=== PATIENT | male | born 1960 | race African-American/Black ===

== ENCOUNTER 2021-03-17 09:19 | Emergency (ER) | payer OTHER, SELFPAY ==
[2021-03-17] MEDS ORDERED: Diazepam 10 MG/2 ML SYRINGE ONE (09:37)
[2021-03-17] MEDS ORDERED: Ketorolac Tromethamine 30 MG/ML VIAL ONE (10:32)
[2021-03-17] MEDS ORDERED: Morphine 4 MG/ML VIAL ONE (11:11)
== END 2021-03-17 11:16 | disposition home or self-care (01) ==
LOC: CSHERS 09:19
DX: S32.019A Unspecified fracture of first lumbar vertebra, initial encounter for closed fracture (principal); W01.10XA Fall on same level from slipping, tripping and stumbling with subsequent striking against unspecified object, initial encounter; I25.2 Old myocardial infarction; E11.9 Type 2 diabetes mellitus without complications; I10 Essential (primary) hypertension
CPT/HCPCS: 70450; 72125; 72128; 72131; 96374; 96375; J1885; J2270; J3360

== ENCOUNTER 2021-03-22 10:46 | Inpatient (IN) | payer SELFPAY ==
[2021-03-22] MEDS ORDERED: Aspirin Chewable 81 MG TAB ONE (11:32)
[2021-03-22] MEDS ORDERED: Ondansetron PF 4 MG/2 ML Vial ONE (11:33)
[2021-03-22] MEDS ORDERED: Morphine 4 MG/ML VIAL ONE (11:33)
[2021-03-22 11:52] LABS: #Eosinphils 0.2 10x3/uL (0.0-0.5); #Monocytes 0.5 10x3/uL (0.0-1.1); #Neutrophils 4.7 10x3/uL (1.5-8.4); %Basophils 0.4 % (0.0-2.0); %Eosinophils 3.3 % (0.0-6.0); %Lymphocytes 23.7 % (18.0-47.0); %Monocytes 7.5 % (0.0-10.0); %Neutrophils 64.8 % (40.0-75.0); Hemoglobin 14.3 g/dL (13.5-17.5); Mean Corpuscular HGB CONC 32.6 g/dL (32.0-36.0); Mean Corpuscular Hemoglobin 24.6 pg (27.0-33.0); Mean Corpuscular Volume 75.3 fl (81.2-95.1); Platelet Count 170 10x3/uL (150-450); RBC Distribution Width 13.3 % (11.5-14.5); Red Blood Cell (RBC) Count 5.82 10x6/uL (4.32-5.72); White Blood Cell (WBC) Count 7.2 10x3/uL (3.5-10.5)
[2021-03-22 12:03] LABS: ALT (SGPT) 36 U/L (8-55); AST (SGOT) 28 U/L (5-34); Albumin 4.2 g/dL (3.4-4.8); Alkaline Phosphatase 68 U/L (40-110); Anion Gap 17 mmol/L (10-20); BUN (Urea Nitrogen) 23 mg/dL (8.4-25.7); Bilirubin, Total 0.5 mg/dL (0.2-1.2); CK (CPK) 88 U/L (30-200); Calc. Creatinine Clearance 0 mL/min (70-130); Calcium 10.4 mg/dL (7.8-10.44); Carbon Dioxide 21 mmol/L (23-31); Chloride 104 mmol/L (98-107); Globulin 3.8 g/dL (2.4-3.5); Glucose 249 mg/dL (80-115); Potassium 5.5 mmol/L (3.5-5.1); Sodium 136 mmol/L (136-145)
[2021-03-22] MEDS ORDERED: Nitroglycerin 2% Ointment 1 INCH/1 GM Packet ONE (12:09)
[2021-03-22] MEDS ORDERED: Dextrose 50% Abboject 50 ML SYRINGE SLOW IVP PRN (14:31)
[2021-03-22] MEDS ORDERED: Ondansetron PF 4 MG/2 ML Vial IVP PRN (14:31)
[2021-03-22] MEDS ORDERED: HYDROcodone/Acetaminophen 10/325 mg Tablet PO PRN (14:31)
[2021-03-22] MEDS ORDERED: Dextrose 5% in Water 1,000 ML IV PRN (14:31)
[2021-03-22] MEDS ORDERED: Methocarbamol 500 MG TAB PO PRN (14:35)
[2021-03-22] MEDS ORDERED: Polyethylene Glycol 3350 17 GM Packet PO PRN (14:37)
[2021-03-22] MEDS ORDERED: Docusate 100 MG CAP PO PRN (14:37)
[2021-03-22] MEDS: Sodium Chloride 0.9% 1,000 ML IV SCH (16:21)
[2021-03-22 16:28] VITALS: BMI 31.2
[2021-03-22 16:34] LABS: Troponin I 0.023 ng/mL (< 0.028)
[2021-03-22] MEDS: HumaLOG 300 UNITS/3 ML VIAL SC PRN (17:14)
[2021-03-22 19:01] LABS: Troponin I 0.021 ng/mL (< 0.028)
[2021-03-22] MEDS: Acetaminophen 325 MG TAB PO PRN (21:43)
[2021-03-22] MEDS: Gabapentin 100 MG CAP PO SCH (21:44)
[2021-03-22] MEDS: Carvedilol 6.25 MG TAB PO SCH (21:46)
[2021-03-22] MEDS: Atorvastatin Calcium 40 MG TAB PO SCH (21:47)
[2021-03-23] MEDS ORDERED: HYDROcodone/Acetaminophen 10/325 mg Tablet PO PRN (00:41)
[2021-03-23] MEDS: Sodium Chloride 0.9% 1,000 ML IV SCH ×2 (05:03→22:27)
[2021-03-23 05:23] LABS: Anion Gap 13 mmol/L (10-20); BUN (Urea Nitrogen) 25 mg/dL (8.4-25.7); Calc. Creatinine Clearance 88 mL/min (70-130); Calcium 9.4 mg/dL (7.8-10.44); Carbon Dioxide 21 mmol/L (23-31); Chloride 105 mmol/L (98-107); Glucose 193 mg/dL (80-115); Potassium 5.2 mmol/L (3.5-5.1); Sodium 134 mmol/L (136-145)
[2021-03-23 05:55] LABS: #Eosinphils 0.2 10x3/uL (0.0-0.5); #Monocytes 0.4 10x3/uL (0.0-1.1); #Neutrophils 3.2 10x3/uL (1.5-8.4); %Basophils 0.4 % (0.0-2.0); %Eosinophils 3.2 % (0.0-6.0); %Lymphocytes 28.6 % (18.0-47.0); %Monocytes 7.8 % (0.0-10.0); %Neutrophils 59.8 % (40.0-75.0); Hemoglobin 13.3 g/dL (13.5-17.5); Mean Corpuscular HGB CONC 33.2 g/dL (32.0-36.0); Mean Corpuscular Volume 75.4 fl (81.2-95.1); Mean Platelet Volume 11.2 fl (7.4-10.4); Platelet Count 128 10x3/uL (150-450); RBC Distribution Width 13.6 % (11.5-14.5); Red Blood Cell (RBC) Count 5.32 10x6/uL (4.32-5.72); White Blood Cell (WBC) Count 5.3 10x3/uL (3.5-10.5)
[2021-03-23] MEDS: HumaLOG 300 UNITS/3 ML VIAL SC PRN ×3 (07:38→21:54)
[2021-03-23] MEDS ORDERED: Methocarbamol 500 MG TAB PO PRN (08:53)
[2021-03-23] MEDS ORDERED: Enoxaparin Sodium 30 MG/0.3 ML SYRINGE SC SCH (09:00)
[2021-03-23] MEDS: Lisinopril 10 MG TAB PO SCH (09:05)
[2021-03-23] MEDS: Amlodipine 5 MG TAB PO SCH (09:06)
[2021-03-23] MEDS: Carvedilol 6.25 MG TAB PO SCH ×2 (09:06→22:02)
[2021-03-23] MEDS: Aspirin 81 mg Enteric Coated Tablet PO SCH (09:06)
[2021-03-23] MEDS: Gabapentin 100 MG CAP PO SCH ×2 (09:07→22:01)
[2021-03-23] MEDS: Furosemide 40 MG TAB PO SCH (09:07)
[2021-03-23] MEDS ORDERED: Methocarbamol 500 MG TAB PO SCH (09:30)
[2021-03-23 12:05] LABS: Hemoglobin A1c 9.8 % (4.0-6.0)
[2021-03-23] MEDS: HYDROcodone/Acetaminophen 10/325 mg Tablet PO PRN ×2 (15:30→21:57)
[2021-03-23] MEDS: Atorvastatin Calcium 40 MG TAB PO SCH (22:02)
[2021-03-24 04:55] LABS: Anion Gap 13 mmol/L (10-20); BUN (Urea Nitrogen) 22 mg/dL (8.4-25.7); Calc. Creatinine Clearance 98 mL/min (70-130); Calcium 9.5 mg/dL (7.8-10.44); Carbon Dioxide 24 mmol/L (23-31); Chloride 103 mmol/L (98-107); Glucose 164 mg/dL (80-115); Potassium 5.2 mmol/L (3.5-5.1); Sodium 135 mmol/L (136-145)
[2021-03-24] MEDS: Acetaminophen 325 MG TAB PO PRN (05:44)
[2021-03-24] MEDS: Sodium Chloride 0.9% 1,000 ML IV SCH (05:45)
[2021-03-24] MEDS: HumaLOG 300 UNITS/3 ML VIAL SC PRN (05:57)
[2021-03-24] MEDS ORDERED: Enoxaparin Sodium 40 MG/0.4 ML SYRINGE SC SCH (09:00)
[2021-03-24] MEDS: Carvedilol 6.25 MG TAB PO SCH (10:19)
[2021-03-24] MEDS: Amlodipine 5 MG TAB PO SCH (10:19)
[2021-03-24] MEDS: Lisinopril 10 MG TAB PO SCH (10:20)
[2021-03-24] MEDS: Aspirin 81 mg Enteric Coated Tablet PO SCH (10:20)
[2021-03-24] MEDS: Gabapentin 100 MG CAP PO SCH (10:20)
[2021-03-24] MEDS: Furosemide 40 MG TAB PO SCH (10:20)
[2021-03-24 12:24] VITALS: BP 132/84; TEMP 98
== END 2021-03-24 12:40 | disposition home or self-care (01) | DRG 552 ==
LOC: CSHERS 10:46 → CSHTELE 14:49
PROVIDERS: ADMIT Internal Medicine; ATTEND Internal Medicine
DX: S32.010A Wedge compression fracture of first lumbar vertebra, initial encounter for closed fracture (principal); N17.9 Acute kidney failure, unspecified; I50.30 Unspecified diastolic (congestive) heart failure; M54.9 Dorsalgia, unspecified; I11.0 Hypertensive heart disease with heart failure; W19.XXXA Unspecified fall, initial encounter; G62.9 Polyneuropathy, unspecified; E87.5 Hyperkalemia; Z90.49 Acquired absence of other specified parts of digestive tract; Y92.9 Unspecified place or not applicable; Z79.899 Other long term (current) drug therapy; I25.2 Old myocardial infarction
CPT/HCPCS: 36415; 36416; 71045; 71275; 80048; 80053; 82550; 83036; 83880; 84484; 85025; 85379; 93005; 93306; 94760; 96374; 96375; J1650; J1815; J2270; J2405; J7050

== ENCOUNTER 2021-08-30 08:37 | Emergency (ER) | payer OTHER, SELFPAY | END 2021-08-30 10:45 | disposition home or self-care (01) | LOC: CSHERS 08:37 | DX: J02.9 Acute pharyngitis, unspecified (principal); Z20.822 Contact with and (suspected) exposure to COVID-19; I11.0 Hypertensive heart disease with heart failure; I50.9 Heart failure, unspecified; E11.9 Type 2 diabetes mellitus without complications; I25.2 Old myocardial infarction; I25.10 Atherosclerotic heart disease of native coronary artery without angina pectoris | CPT/HCPCS: 87081; 87430; 99283; U0003; U0005 ==

== ENCOUNTER 2021-09-06 13:31 | Inpatient (IN) | payer MEDICAID, SELFPAY ==
[2021-09-06] MEDS ORDERED: Nitroglycerin 2% Ointment 1 INCH/1 GM Packet ONE (13:59)
[2021-09-06] MEDS ORDERED: Aspirin 325 MG TAB ONE (13:59)
[2021-09-06 14:23] LABS: #Eosinphils 0.2 10x3/uL (0.0-0.5); #Monocytes 0.6 10x3/uL (0.0-1.1); #Neutrophils 4.8 10x3/uL (1.5-8.4); %Basophils 0.5 % (0.0-2.0); %Eosinophils 2.6 % (0.0-6.0); %Lymphocytes 23.1 % (18.0-47.0); %Neutrophils 65.5 % (40.0-75.0); Hemoglobin 14.2 g/dL (13.5-17.5); Mean Corpuscular HGB CONC 33.2 g/dL (32.0-36.0); Mean Corpuscular Hemoglobin 24.9 pg (27.0-33.0); Mean Platelet Volume 11.2 fl (7.4-10.4); Platelet Count 218 10x3/uL (150-450); RBC Distribution Width 12.9 % (11.5-14.5); Red Blood Cell (RBC) Count 5.71 10x6/uL (4.32-5.72); White Blood Cell (WBC) Count 7.4 10x3/uL (3.5-10.5)
[2021-09-06 14:39] LABS: ALT (SGPT) 32 U/L (8-55); AST (SGOT) 26 U/L (5-34); Albumin 4.1 g/dL (3.4-4.8); Alkaline Phosphatase 66 U/L (40-110); Anion Gap 16 mmol/L (10-20); BUN (Urea Nitrogen) 20 mg/dL (8.4-25.7); Bilirubin, Total 0.7 mg/dL (0.2-1.2); CK (CPK) 141 U/L (30-200); Calc. Creatinine Clearance 0 mL/min (70-130); Calcium 10.4 mg/dL (7.8-10.44); Carbon Dioxide 23 mmol/L (23-31); Chloride 104 mmol/L (98-107); Estimated GFR 62; Globulin 3.2 g/dL (2.4-3.5); Glucose 189 mg/dL (80-115); Lipase 66 U/L (8-78); Potassium 4.2 mmol/L (3.5-5.1); Protein, Total 7.3 g/dL (5.8-8.1); Sodium 139 mmol/L (136-145)
[2021-09-06 14:58] LABS: CKMB 2.4 ng/mL (0-6.6)
[2021-09-06] MEDS ORDERED: Dextrose 50% Abboject 50 ML SYRINGE SLOW IVP PRN (15:46)
[2021-09-06] MEDS ORDERED: HumaLOG 300 UNITS/3 ML VIAL SC PRN (15:46)
[2021-09-06] MEDS ORDERED: Ondansetron ODT 4 MG TAB PO PRN (15:46)
[2021-09-06] MEDS ORDERED: Dextrose 5% in Water 1,000 ML IV PRN (15:46)
[2021-09-06] MEDS: Acetaminophen 325 MG TAB PO PRN (17:32)
[2021-09-06 17:50] VITALS: BMI 30.1
[2021-09-06 18:10] LABS: Troponin I 0.029 ng/mL (< 0.028)
[2021-09-06 21:10] LABS: Troponin I 0.029 ng/mL (< 0.028)
[2021-09-06] MEDS: Atorvastatin Calcium 40 MG TAB PO SCH (21:38)
[2021-09-06] MEDS: HumaLOG 300 UNITS/3 ML VIAL SC PRN (21:39)
[2021-09-07 05:20] LABS: #Eosinphils 0.2 10x3/uL (0.0-0.5); #Monocytes 0.5 10x3/uL (0.0-1.1); #Neutrophils 3.2 10x3/uL (1.5-8.4); %Basophils 0.5 % (0.0-2.0); %Eosinophils 2.9 % (0.0-6.0); %Lymphocytes 29.3 % (18.0-47.0); %Monocytes 9.2 % (0.0-10.0); %Neutrophils 57.7 % (40.0-75.0); Hemoglobin 13.4 g/dL (13.5-17.5); Mean Corpuscular HGB CONC 33.2 g/dL (32.0-36.0); Mean Corpuscular Volume 75.2 fl (81.2-95.1); Mean Platelet Volume 11.1 fl (7.4-10.4); Platelet Count 157 10x3/uL (150-450); RBC Distribution Width 12.9 % (11.5-14.5); Red Blood Cell (RBC) Count 5.37 10x6/uL (4.32-5.72); White Blood Cell (WBC) Count 5.6 10x3/uL (3.5-10.5)
[2021-09-07 05:30] LABS: Anion Gap 11 mmol/L (10-20); BUN (Urea Nitrogen) 22 mg/dL (8.4-25.7); Calc. Creatinine Clearance 99 mL/min (70-130); Calcium 9.7 mg/dL (7.8-10.44); Carbon Dioxide 24 mmol/L (23-31); Chloride 107 mmol/L (98-107); Estimated GFR 76; Glucose 184 mg/dL (80-115); Potassium 3.8 mmol/L (3.5-5.1); Sodium 138 mmol/L (136-145)
[2021-09-07] MEDS: HumaLOG 300 UNITS/3 ML VIAL SC PRN ×2 (06:40→18:56)
[2021-09-07] MEDS ORDERED: HYDROcodone/Acetaminophen 10/325 mg Tablet PO PRN (07:59)
[2021-09-07] MEDS ORDERED: Lisinopril 10 MG TAB PO SCH (09:00)
[2021-09-07] MEDS ORDERED: Aspirin 81 mg Enteric Coated Tablet PO SCH (09:00)
[2021-09-07] MEDS: Aspirin Chewable 81 MG TAB PO SCH (09:32)
[2021-09-07] MEDS: Furosemide 40 MG TAB PO SCH (09:32)
[2021-09-07] MEDS: Amlodipine 5 MG TAB PO SCH (09:33)
[2021-09-07] MEDS: Empagliflozin 25 MG TAB PO SCH (09:33)
[2021-09-07] MEDS: Carvedilol 6.25 MG TAB PO SCH ×2 (09:33→20:47)
[2021-09-07] MEDS: Acetaminophen 325 MG TAB PO PRN (09:42)
[2021-09-07] MEDS: Atorvastatin Calcium 40 MG TAB PO SCH (20:47)
[2021-09-07] MEDS: Lisinopril 10 MG TAB PO SCH (20:47)
[2021-09-07] MEDS ORDERED: AMOXICILLIN 875 MG PO SCH (21:00)
[2021-09-08] MEDS: HumaLOG 300 UNITS/3 ML VIAL SC PRN ×3 (06:30→17:20)
[2021-09-08] MEDS: Acetaminophen 325 MG TAB PO PRN (08:30)
[2021-09-08] MEDS: Carvedilol 6.25 MG TAB PO SCH ×2 (08:30→21:06)
[2021-09-08] MEDS: Aspirin Chewable 81 MG TAB PO SCH (08:30)
[2021-09-08] MEDS: Lisinopril 10 MG TAB PO SCH ×2 (08:30→21:07)
[2021-09-08] MEDS: Furosemide 40 MG TAB PO SCH (08:30)
[2021-09-08] MEDS: Amlodipine 5 MG TAB PO SCH (08:30)
[2021-09-08] MEDS: Empagliflozin 25 MG TAB PO SCH (08:35)
[2021-09-08] MEDS: Amiodarone 200 MG TAB PO SCH ×2 (15:11→21:07)
[2021-09-08] MEDS: Atorvastatin Calcium 40 MG TAB PO SCH (21:06)
[2021-09-09 05:18] LABS: Cardiac Risk 4.6 (Less than 4.5)
[2021-09-09] MEDS: HumaLOG 300 UNITS/3 ML VIAL SC PRN ×2 (06:00→12:06)
[2021-09-09] MEDS: Amiodarone 200 MG TAB PO SCH (08:21)
[2021-09-09] MEDS: Furosemide 40 MG TAB PO SCH (08:21)
[2021-09-09] MEDS: Lisinopril 10 MG TAB PO SCH (08:21)
[2021-09-09] MEDS: Empagliflozin 25 MG TAB PO SCH (08:21)
[2021-09-09] MEDS: Aspirin Chewable 81 MG TAB PO SCH (08:22)
[2021-09-09] MEDS: Carvedilol 6.25 MG TAB PO SCH (08:22)
[2021-09-09] MEDS: Amlodipine 5 MG TAB PO SCH (08:22)
[2021-09-09 12:35] VITALS: BP 147/85; TEMP 97.9
== END 2021-09-09 13:15 | disposition home or self-care (01) | DRG 309 ==
LOC: CSHERS 13:31 → CSHTELE 16:28
PROVIDERS: ADMIT Internal Medicine; ATTEND Internal Medicine
DX: I47.1 Supraventricular tachycardia (principal); I50.42 Chronic combined systolic (congestive) and diastolic (congestive) heart failure; I42.8 Other cardiomyopathies; I25.10 Atherosclerotic heart disease of native coronary artery without angina pectoris; I11.0 Hypertensive heart disease with heart failure; E11.9 Type 2 diabetes mellitus without complications; J45.909 Unspecified asthma, uncomplicated; J02.9 Acute pharyngitis, unspecified; I48.92 Unspecified atrial flutter; Z20.822 Contact with and (suspected) exposure to COVID-19; Z79.899 Other long term (current) drug therapy; Z79.84 Long term (current) use of oral hypoglycemic drugs; Z79.82 Long term (current) use of aspirin; Z90.49 Acquired absence of other specified parts of digestive tract; I25.2 Old myocardial infarction
CPT/HCPCS: 36415; 36416; 71045; 80048; 80053; 80061; 82550; 82553; 83036; 83690; 83735; 83880; 84443; 84484; 85025; 85379; 93005; 93010; 93306; 94760; J1815; U0003; U0005

== ENCOUNTER 2021-09-18 06:37 | Emergency (ER) | payer SELFPAY ==
[2021-09-18] MEDS ORDERED: Ketorolac Tromethamine 30 MG/ML VIAL ONE (07:20)
== END 2021-09-18 08:55 | disposition home or self-care (01) ==
LOC: CSHERS 06:37
DX: S83.92XA Sprain of unspecified site of left knee, initial encounter (principal); I25.10 Atherosclerotic heart disease of native coronary artery without angina pectoris; I25.2 Old myocardial infarction; E11.9 Type 2 diabetes mellitus without complications; I11.0 Hypertensive heart disease with heart failure; I50.9 Heart failure, unspecified
CPT/HCPCS: 96372; J1885

== ENCOUNTER 2022-04-13 10:13 | Inpatient (IN) | payer SELFPAY ==
[2022-04-13 10:59] LABS: #Eosinphils 0.1 10x3/uL (0.0-0.5); #Monocytes 0.4 10x3/uL (0.0-1.1); #Neutrophils 4.1 10x3/uL (1.5-8.4); %Basophils 0.5 % (0.0-2.0); %Lymphocytes 22.4 % (18.0-47.0); %Monocytes 6.5 % (0.0-10.0); %Neutrophils 68.4 % (40.0-75.0); Hemoglobin 13.6 g/dL (13.5-17.5); Mean Corpuscular Hemoglobin 25.2 pg (27.0-33.0); Mean Corpuscular Volume 76.4 fl (81.2-95.1); Platelet Count 221 10x3/uL (150-450); RBC Distribution Width 13.7 % (11.5-14.5); Red Blood Cell (RBC) Count 5.39 10x6/uL (4.32-5.72)
[2022-04-13 11:03] LABS: ALT (SGPT) 50 U/L (8-55); AST (SGOT) 37 U/L (5-34); Albumin 4.2 g/dL (3.4-4.8); Alkaline Phosphatase 49 U/L (40-110); Anion Gap 17 mmol/L (10-20); BUN (Urea Nitrogen) 23 mg/dL (8.4-25.7); Bilirubin, Total 0.7 mg/dL (0.2-1.2); Calc. Creatinine Clearance 0 mL/min (70-130); Calcium 10.2 mg/dL (7.8-10.44); Carbon Dioxide 19 mmol/L (23-31); Chloride 103 mmol/L (98-107); Estimated GFR 47; Globulin 3.1 g/dL (2.4-3.5); Glucose 178 mg/dL (80-115); Lipase 38 U/L (8-78); Potassium 4.6 mmol/L (3.5-5.1); Protein, Total 7.3 g/dL (5.8-8.1); Sodium 134 mmol/L (136-145)
[2022-04-13] MEDS ORDERED: Morphine 4 MG/ML VIAL ONE ×2 (11:49→14:10)
[2022-04-13] MEDS ORDERED: Aspirin Chewable 81 MG TAB ONE (12:03)
[2022-04-13 15:24] LABS: Troponin I 0.024 ng/mL (< 0.028)
[2022-04-13] MEDS ORDERED: Dextrose 5% in Water 1,000 ML IV PRN (16:47)
[2022-04-13] MEDS ORDERED: Dextrose 50% Abboject 50 ML SYRINGE SLOW IVP PRN (16:47)
[2022-04-13] MEDS ORDERED: HumaLOG 300 UNITS/3 ML VIAL SC PRN ×2 (16:47)
[2022-04-13] MEDS ORDERED: Ipratropium/Albuterol 3 ML NEB NEB PRN (18:22)
[2022-04-13 18:48] LABS: Troponin I 0.022 ng/mL (< 0.028)
[2022-04-13 18:51] LABS: Magnesium 1.9 mg/dL (1.6-2.6)
[2022-04-13] MEDS ORDERED: Furosemide 40 MG/4 ML VIAL SLOW IVP SCH (20:00)
[2022-04-13] MEDS: Amiodarone 200 MG TAB PO SCH (21:33)
[2022-04-13] MEDS: Atorvastatin Calcium 40 MG TAB PO SCH (21:33)
[2022-04-13] MEDS: Carvedilol 6.25 MG TAB PO SCH (21:33)
[2022-04-13] MEDS: Heparin 5,000 UNITS/ML VIAL SC SCH (21:34)
[2022-04-13 22:16] VITALS: BMI 29.5
[2022-04-13 22:43] LABS: Bilirubin Neg (Negative); Blood, Urine Negative (Negative); Clarity Clear (Clear); Glucose, Urine (Dipstick) >=1000 mg/dL (Negative); Ketone, Urine Negative (Negative); Leukocyte Negative (Negative); Nitrite Negative (Negative); Protein, Urine (Dipstick) Negative (Neg-Trace); Specific Gravity, Urine 1.015 (1.005-1.030); Urobilinogen Normal mg/dL (Less than 2)
[2022-04-13 23:11] LABS: Bacteria/HPF None Seen HPF (None Seen); RBC/HPF 0-3 HPF (0-3); Squamous Epithelial 0-3 HPF (0-3); WBC/HPF 0-3 HPF (0-3)
[2022-04-13 23:23] LABS: SARS-CoV-2 NAA Rapid Test Not Detected (NotDetected)
[2022-04-14] MEDS: Furosemide 40 MG/4 ML VIAL SLOW IVP SCH ×2 (05:37→15:22)
[2022-04-14] MEDS ORDERED: Lisinopril 10 MG TAB PO SCH (09:00)
[2022-04-14] MEDS ORDERED: Amlodipine 5 MG TAB PO SCH (09:00)
[2022-04-14] MEDS: Heparin 5,000 UNITS/ML VIAL SC SCH ×2 (09:37→21:42)
[2022-04-14] MEDS: Carvedilol 6.25 MG TAB PO SCH ×2 (09:37→21:28)
[2022-04-14] MEDS: Aspirin 81 mg Enteric Coated Tablet PO SCH (09:37)
[2022-04-14] MEDS: Amiodarone 200 MG TAB PO SCH (09:37)
[2022-04-14 09:42] LABS: Anion Gap 17 mmol/L (10-20); BUN (Urea Nitrogen) 34 mg/dL (8.4-25.7); Calc. Creatinine Clearance 60 mL/min (70-130); Calcium 10.2 mg/dL (7.8-10.44); Carbon Dioxide 23 mmol/L (23-31); Chloride 103 mmol/L (98-107); Estimated GFR 42; Glucose 196 mg/dL (80-115); Potassium 4.5 mmol/L (3.5-5.1); Sodium 138 mmol/L (136-145)
[2022-04-14] MEDS: Atorvastatin Calcium 40 MG TAB PO SCH (21:42)
[2022-04-15 04:34] LABS: Anion Gap 13 mmol/L (10-20); BUN (Urea Nitrogen) 36 mg/dL (8.4-25.7); Calc. Creatinine Clearance 65 mL/min (70-130); Calcium 9.4 mg/dL (7.8-10.44); Carbon Dioxide 23 mmol/L (23-31); Chloride 103 mmol/L (98-107); Estimated GFR 47; Glucose 164 mg/dL (80-115); Sodium 135 mmol/L (136-145)
[2022-04-15] MEDS ORDERED: Furosemide 20 MG TAB PO SCH (09:00)
[2022-04-15] MEDS ORDERED: Lisinopril 5 MG TAB PO SCH (09:00)
[2022-04-15] MEDS ORDERED: Amiodarone 200 MG TAB PO SCH (09:00)
[2022-04-15] MEDS: Aspirin 81 mg Enteric Coated Tablet PO SCH (09:25)
[2022-04-15] MEDS: Heparin 5,000 UNITS/ML VIAL SC SCH (09:26)
[2022-04-15] MEDS: Carvedilol 6.25 MG TAB PO SCH (09:26)
[2022-04-15 12:54] VITALS: BP 105/57; TEMP 98.7
== END 2022-04-15 13:30 | disposition home or self-care (01) | DRG 291 ==
LOC: CSHERS 10:13 → CSHTELE 19:58 → OBSVTOIN 04-15 08:58
PROVIDERS: ADMIT Hospitalist; ATTEND Internal Medicine
DX: I13.0 Hypertensive heart and chronic kidney disease with heart failure and stage 1 through stage 4 chronic kidney disease, or unspecified chronic kidney disease (principal); I50.43 Acute on chronic combined systolic (congestive) and diastolic (congestive) heart failure; N17.9 Acute kidney failure, unspecified; I48.20 Chronic atrial fibrillation, unspecified; E87.1 Hypo-osmolality and hyponatremia; E87.20 Acidosis, unspecified; E78.5 Hyperlipidemia, unspecified; I25.10 Atherosclerotic heart disease of native coronary artery without angina pectoris; I48.91 Unspecified atrial fibrillation; J45.909 Unspecified asthma, uncomplicated; E11.42 Type 2 diabetes mellitus with diabetic polyneuropathy; N18.30 Chronic kidney disease, stage 3 unspecified; Z20.822 Contact with and (suspected) exposure to COVID-19; Z79.899 Other long term (current) drug therapy; Z79.84 Long term (current) use of oral hypoglycemic drugs; Z79.82 Long term (current) use of aspirin; Z90.49 Acquired absence of other specified parts of digestive tract; I25.2 Old myocardial infarction; Z95.5 Presence of coronary angioplasty implant and graft
CPT/HCPCS: 36415; 36416; 71045; 80048; 80053; 81001; 83690; 83735; 83880; 84484; 85025; 93005; 94760; 96374; 96376; J1644; J1815; J1940; J2270

== ENCOUNTER 2022-09-06 08:56 | Inpatient (IN) | payer MEDICAID, OTHER ==
[2022-09-06 09:16] LABS: #Basophils 0.1 10x3/uL (0.0-0.2); #Eosinphils 0.2 10x3/uL (0.0-0.5); #Monocytes 0.7 10x3/uL (0.0-1.1); #Neutrophils 4.9 10x3/uL (1.5-8.4); %Basophils 0.7 % (0.0-2.0); %Lymphocytes 21.7 % (18.0-47.0); %Monocytes 9.2 % (0.0-10.0); %Neutrophils 66.1 % (40.0-75.0); Hemoglobin 14.9 g/dL (13.5-17.5); Mean Corpuscular HGB CONC 32.7 g/dL (32.0-36.0); Mean Corpuscular Hemoglobin 24.8 pg (27.0-33.0); Mean Platelet Volume 10.4 fl (7.4-10.4); Platelet Count 237 10x3/uL (150-450); RBC Distribution Width 14.8 % (11.5-14.5); White Blood Cell (WBC) Count 7.4 10x3/uL (3.5-10.5)
[2022-09-06 09:32] LABS: ALT (SGPT) 83 U/L (8-55); AST (SGOT) 64 U/L (5-34); Albumin 4.4 g/dL (3.4-4.8); Alkaline Phosphatase 53 U/L (40-110); Anion Gap 18 mmol/L (10-20); BUN (Urea Nitrogen) 38 mg/dL (8.4-25.7); Bilirubin, Total 0.7 mg/dL (0.2-1.2); Calc. Creatinine Clearance 0 mL/min (70-130); Calcium 10.3 mg/dL (7.8-10.44); Carbon Dioxide 17 mmol/L (23-31); Chloride 106 mmol/L (98-107); Estimated GFR 28; Globulin 3.3 g/dL (2.4-3.5); Glucose 175 mg/dL (80-115); Potassium 5.6 mmol/L (3.5-5.1); Protein, Total 7.7 g/dL (5.8-8.1); Sodium 135 mmol/L (136-145)
[2022-09-06] MEDS ORDERED: Aspirin Chewable 81 MG TAB ONE (10:30)
[2022-09-06] MEDS ORDERED: Furosemide 40 MG/4 ML VIAL ONE (10:30)
[2022-09-06 10:37] LABS: CK (CPK) 100 U/L (30-200); Lipase 66 U/L (8-78)
[2022-09-06] MEDS ORDERED: Ondansetron ODT 4 MG TAB PO PRN (10:46)
[2022-09-06] MEDS ORDERED: Dextrose 50% Abboject 50 ML SYRINGE SLOW IVP PRN (10:49)
[2022-09-06] MEDS ORDERED: Dextrose 5% in Water 1,000 ML IV PRN (10:49)
[2022-09-06] MEDS ORDERED: Glucagon 1 MG/ML KIT IM PRN (10:49)
[2022-09-06 12:26] LABS: SARS-CoV-2 NAA Rapid Test Not Detected (NotDetected)
[2022-09-06 12:55] LABS: Troponin I 0.027 ng/mL (< 0.028)
[2022-09-06] MEDS ORDERED: Furosemide 40 MG/4 ML VIAL SLOW IVP SCH (13:00)
[2022-09-06 14:37] VITALS: BMI 28.8
[2022-09-06 15:46] LABS: Troponin I 0.039 ng/mL (< 0.028)
[2022-09-06] MEDS: HumaLOG 300 UNITS/3 ML VIAL SC PRN (16:28)
[2022-09-06] MEDS ORDERED: Atorvastatin Calcium 20 MG TAB PO SCH (21:00)
[2022-09-06] MEDS: Acetaminophen 325 MG TAB PO PRN (23:36)
[2022-09-07 04:40] LABS: Anion Gap 17 mmol/L (10-20); BUN (Urea Nitrogen) 43 mg/dL (8.4-25.7); Calc. Creatinine Clearance 40 mL/min (70-130); Calcium 9.7 mg/dL (7.8-10.44); Carbon Dioxide 19 mmol/L (23-31); Chloride 103 mmol/L (98-107); Estimated GFR 28; Glucose 231 mg/dL (80-115); Sodium 134 mmol/L (136-145)
[2022-09-07 04:41] LABS: #Eosinphils 0.2 10x3/uL (0.0-0.5); #Monocytes 0.7 10x3/uL (0.0-1.1); #Neutrophils 3.7 10x3/uL (1.5-8.4); %Basophils 0.6 % (0.0-2.0); %Eosinophils 2.4 % (0.0-6.0); %Lymphocytes 28.3 % (18.0-47.0); %Monocytes 10.4 % (0.0-10.0); %Neutrophils 58.1 % (40.0-75.0); Hemoglobin 14.2 g/dL (13.5-17.5); Mean Corpuscular HGB CONC 33.3 g/dL (32.0-36.0); Mean Corpuscular Hemoglobin 25.2 pg (27.0-33.0); Mean Corpuscular Volume 75.7 fl (81.2-95.1); Mean Platelet Volume 10.9 fl (7.4-10.4); Platelet Count 198 10x3/uL (150-450); Red Blood Cell (RBC) Count 5.64 10x6/uL (4.32-5.72); White Blood Cell (WBC) Count 6.4 10x3/uL (3.5-10.5)
[2022-09-07] MEDS: Amlodipine 10 MG TAB PO SCH (09:00)
[2022-09-07] MEDS: Amiodarone 200 MG TAB PO SCH (09:00)
[2022-09-07] MEDS: Empagliflozin 10 MG TAB PO SCH (09:01)
[2022-09-07] MEDS: HumaLOG 300 UNITS/3 ML VIAL SC PRN ×2 (09:03→21:06)
[2022-09-07 13:40] LABS: Magnesium 2.8 mg/dL (1.6-2.6); Phosphorus 4.2 mg/dL (2.3-4.7)
[2022-09-07 16:27] LABS: Bilirubin Neg (Negative); Blood, Urine Negative (Negative); Clarity Clear (Clear); Glucose, Urine (Dipstick) >=1000 mg/dL (Negative); Ketone, Urine Negative (Negative); Leukocyte Negative (Negative); Nitrite Negative (Negative); Protein, Urine (Dipstick) Negative (Neg-Trace); Specific Gravity, Urine 1.015 (1.005-1.030); Urobilinogen Normal mg/dL (Less than 2)
[2022-09-07 17:00] LABS: Bacteria/HPF Rare-Few HPF (None Seen); RBC/HPF None Seen HPF (0-3); Squamous Epithelial 0-3 HPF (0-3); WBC/HPF 0-3 HPF (0-3)
[2022-09-07] MEDS: Acetaminophen 325 MG TAB PO PRN (19:40)
[2022-09-07] MEDS: Sodium Bicarbonate Tab 325 MG TAB PO SCH (21:06)
[2022-09-08 05:17] LABS: #Eosinphils 0.2 10x3/uL (0.0-0.5); #Monocytes 0.6 10x3/uL (0.0-1.1); #Neutrophils 3.5 10x3/uL (1.5-8.4); %Basophils 0.7 % (0.0-2.0); %Eosinophils 2.5 % (0.0-6.0); %Lymphocytes 29.5 % (18.0-47.0); %Neutrophils 57.1 % (40.0-75.0); Mean Corpuscular HGB CONC 32.5 g/dL (32.0-36.0); Mean Corpuscular Hemoglobin 24.9 pg (27.0-33.0); Mean Corpuscular Volume 76.6 fl (81.2-95.1); Mean Platelet Volume 11.1 fl (7.4-10.4); Platelet Count 212 10x3/uL (150-450); RBC Distribution Width 14.9 % (11.5-14.5); Red Blood Cell (RBC) Count 5.63 10x6/uL (4.32-5.72); White Blood Cell (WBC) Count 6.1 10x3/uL (3.5-10.5)
[2022-09-08 05:25] LABS: Anion Gap 16 mmol/L (10-20); BUN (Urea Nitrogen) 44 mg/dL (8.4-25.7); Calc. Creatinine Clearance 47 mL/min (70-130); Carbon Dioxide 18 mmol/L (23-31); Chloride 106 mmol/L (98-107); Estimated GFR 33; Glucose 120 mg/dL (80-115); Potassium 5.2 mmol/L (3.5-5.1); Sodium 135 mmol/L (136-145)
[2022-09-08] MEDS: Amlodipine 10 MG TAB PO SCH (09:22)
[2022-09-08] MEDS: Empagliflozin 10 MG TAB PO SCH (09:23)
[2022-09-08] MEDS: Amiodarone 200 MG TAB PO SCH (09:23)
[2022-09-08] MEDS: Sodium Bicarbonate Tab 325 MG TAB PO SCH ×2 (09:23→21:22)
[2022-09-08] MEDS: HumaLOG 300 UNITS/3 ML VIAL SC PRN ×3 (11:16→22:46)
[2022-09-08 12:11] LABS: Anion Gap 16 mmol/L (10-20); BUN (Urea Nitrogen) 42 mg/dL (8.4-25.7); Calc. Creatinine Clearance 47 mL/min (70-130); Calcium 9.9 mg/dL (7.8-10.44); Carbon Dioxide 18 mmol/L (23-31); Chloride 104 mmol/L (98-107); Estimated GFR 33; Glucose 196 mg/dL (80-115); Potassium 5.2 mmol/L (3.5-5.1); Sodium 133 mmol/L (136-145)
[2022-09-08 15:10] LABS: Anion Gap 18 mmol/L (10-20); BUN (Urea Nitrogen) 42 mg/dL (8.4-25.7); Calc. Creatinine Clearance 42 mL/min (70-130); Calcium 10.3 mg/dL (7.8-10.44); Carbon Dioxide 20 mmol/L (23-31); Chloride 104 mmol/L (98-107); Estimated GFR 29; Glucose 234 mg/dL (80-115); Potassium 5.7 mmol/L (3.5-5.1); Sodium 136 mmol/L (136-145)
[2022-09-08 20:15] LABS: Anion Gap 16 mmol/L (10-20); BUN (Urea Nitrogen) 41 mg/dL (8.4-25.7); Calc. Creatinine Clearance 43 mL/min (70-130); Calcium 9.9 mg/dL (7.8-10.44); Carbon Dioxide 22 mmol/L (23-31); Chloride 104 mmol/L (98-107); Estimated GFR 30; Glucose 234 mg/dL (80-115); Potassium 5.4 mmol/L (3.5-5.1); Sodium 137 mmol/L (136-145)
[2022-09-08] MEDS ORDERED: Heparin 5,000 UNITS/ML VIAL SC SCH (21:00)
[2022-09-08] MEDS: Carvedilol 6.25 MG TAB PO SCH (21:20)
[2022-09-09 05:48] LABS: Anion Gap 16 mmol/L (10-20); BUN (Urea Nitrogen) 39 mg/dL (8.4-25.7); Calc. Creatinine Clearance 46 mL/min (70-130); Carbon Dioxide 25 mmol/L (23-31); Chloride 103 mmol/L (98-107); Estimated GFR 33; Glucose 156 mg/dL (80-115); Potassium 5.3 mmol/L (3.5-5.1); Sodium 139 mmol/L (136-145)
[2022-09-09 07:38] LABS: Anion Gap 16 mmol/L (10-20); BUN (Urea Nitrogen) 39 mg/dL (8.4-25.7); Calc. Creatinine Clearance 45 mL/min (70-130); Calcium 9.7 mg/dL (7.8-10.44); Carbon Dioxide 21 mmol/L (23-31); Chloride 102 mmol/L (98-107); Estimated GFR 32; Glucose 231 mg/dL (80-115); Potassium 4.8 mmol/L (3.5-5.1); Sodium 134 mmol/L (136-145)
[2022-09-09 08:23] VITALS: BP 140/83; TEMP 98.2
[2022-09-09] MEDS: HumaLOG 300 UNITS/3 ML VIAL SC PRN (08:27)
[2022-09-09] MEDS ORDERED: Aspirin 81 mg Enteric Coated Tablet PO SCH (09:00)
[2022-09-09] MEDS: Amlodipine 10 MG TAB PO SCH (09:35)
[2022-09-09] MEDS: Carvedilol 6.25 MG TAB PO SCH (09:35)
[2022-09-09] MEDS: Amiodarone 200 MG TAB PO SCH (09:36)
[2022-09-09] MEDS: Sodium Bicarbonate Tab 325 MG TAB PO SCH (09:38)
[2022-09-09] MEDS: Empagliflozin 10 MG TAB PO SCH (09:48)
== END 2022-09-09 11:12 | disposition home or self-care (01) | DRG 683 ==
LOC: CSHERS 08:56 → SUATTDRO 08:56 → CSHTELE 12:57
PROVIDERS: ADMIT Family Medicine; ATTEND Family Medicine
DX: N17.9 Acute kidney failure, unspecified (principal); E87.20 Acidosis, unspecified; I13.0 Hypertensive heart and chronic kidney disease with heart failure and stage 1 through stage 4 chronic kidney disease, or unspecified chronic kidney disease; I50.32 Chronic diastolic (congestive) heart failure; N18.4 Chronic kidney disease, stage 4 (severe); I25.10 Atherosclerotic heart disease of native coronary artery without angina pectoris; E11.22 Type 2 diabetes mellitus with diabetic chronic kidney disease; Z79.899 Other long term (current) drug therapy; Z79.82 Long term (current) use of aspirin; Z79.84 Long term (current) use of oral hypoglycemic drugs; I25.2 Old myocardial infarction; Z90.49 Acquired absence of other specified parts of digestive tract; E87.5 Hyperkalemia; Z88.8 Allergy status to other drugs, medicaments and biological substances
CPT/HCPCS: 36415; 36416; 71045; 76770; 80048; 80053; 81001; 82550; 83690; 83735; 83880; 83970; 84100; 84484; 85025; 93005; 93306; 94760; 96361; 96374; J1644; J1650; J1815; J1940

== ENCOUNTER 2022-12-31 10:45 | Outpatient (CLI) | payer OTHER | END 2022-12-31 10:46 | disposition home or self-care (01) | LOC: CSHULT 10:45 | PROVIDERS: ATTEND Physician Assistant Medical | DX: B19.20 Unspecified viral hepatitis C without hepatic coma (principal); K74.60 Unspecified cirrhosis of liver | CPT/HCPCS: 76705 ==

== ENCOUNTER 2023-04-03 08:31 | Emergency (ER) | payer OTHER ==
[2023-04-03] MEDS ORDERED: Ondansetron ODT 4 MG TAB ONE (09:06)
[2023-04-03] MEDS ORDERED: HYDROcodone/Acetaminophen 10/325 mg Tablet ONE (09:06)
== END 2023-04-03 09:43 | disposition home or self-care (01) ==
LOC: CSHERS 08:31
DX: S30.0XXA Contusion of lower back and pelvis, initial encounter (principal); E11.9 Type 2 diabetes mellitus without complications; I11.0 Hypertensive heart disease with heart failure; I50.9 Heart failure, unspecified; W22.8XXA Striking against or struck by other objects, initial encounter
CPT/HCPCS: 72100; Q0162

== ENCOUNTER 2023-04-12 08:39 | Emergency (ER) | payer OTHER ==
[2023-04-12 09:46] LABS: Anion Gap 13 mmol/L (10-20); BUN (Urea Nitrogen) 23 mg/dL (8.4-25.7); Calc. Creatinine Clearance 0 mL/min (70-130); Calcium 9.6 mg/dL (7.8-10.44); Carbon Dioxide 20 mmol/L (23-31); Chloride 108 mmol/L (98-107); Estimated GFR 46; Glucose 211 mg/dL (80-115); Potassium 4.1 mmol/L (3.5-5.1); Sodium 137 mmol/L (136-145)
[2023-04-12] MEDS ORDERED: traMADol HCl 50 MG TAB ONE (11:15)
[2023-04-12] MEDS ORDERED: Lidocaine 4% Patch TD SCH (11:30)
[2023-04-12] MEDS ORDERED: Transdermal Patch Removal TOP SCH (23:30)
== END 2023-04-12 11:24 | disposition home or self-care (01) ==
LOC: CSHERS 08:39
DX: S32.018A Other fracture of first lumbar vertebra, initial encounter for closed fracture (principal); I11.0 Hypertensive heart disease with heart failure; I50.9 Heart failure, unspecified; E11.40 Type 2 diabetes mellitus with diabetic neuropathy, unspecified; W19.XXXA Unspecified fall, initial encounter
CPT/HCPCS: 36415; 72131; 80048

== ENCOUNTER 2023-06-24 15:24 | Outpatient (CLI) | payer OTHER | END 2023-06-24 15:25 | disposition home or self-care (01) | LOC: CSHMRI 15:24 | PROVIDERS: ATTEND Physician Assistant Medical | DX: R29.898 Other symptoms and signs involving the musculoskeletal system (principal); S32.029D Unspecified fracture of second lumbar vertebra, subsequent encounter for fracture with routine healing; S22.010D Wedge compression fracture of first thoracic vertebra, subsequent encounter for fracture with routine healing; M40.205 Unspecified kyphosis, thoracolumbar region; M47.816 Spondylosis without myelopathy or radiculopathy, lumbar region | CPT/HCPCS: 72148 ==

== ENCOUNTER 2023-07-12 10:21 | Emergency (ER) | payer OTHER ==
[2023-07-12 11:19] LABS: #Basophils 0.04 10x3/uL (0.0-0.2); #Eosinphils 0.17 10x3/uL (0.0-0.5); #Monocytes 0.46 10x3/uL (0.0-1.1); #Neutrophils 4.96 10x3/uL (1.5-8.4); %Basophils 0.6 % (0.0-2.0); %Eosinophils 2.4 % (0.0-6.0); %Monocytes 6.5 % (0.0-10.0); %Neutrophils 70.4 % (40.0-75.0); Hematocrit 42.7 % (38.8-50.0); Hemoglobin 14.2 g/dL (13.5-17.5); Mean Corpuscular HGB CONC 33.3 g/dL (32.0-36.0); Mean Corpuscular Hemoglobin 24.5 pg (27.0-33.0); Mean Corpuscular Volume 73.7 fl (81.2-95.1); Mean Platelet Volume 10.8 fl (7.4-10.4); Platelet Count 182 10x3/uL (150-450); RBC Distribution Width 15.2 % (11.5-14.5); Red Blood Cell (RBC) Count 5.79 10x6/uL (4.32-5.72); White Blood Cell (WBC) Count 7.1 10x3/uL (3.5-10.5)
[2023-07-12 11:27] LABS: ALT (SGPT) 25 U/L (8-55); AST (SGOT) 26 U/L (5-34); Alkaline Phosphatase 71 U/L (40-110); Anion Gap 18 mmol/L (10-20); BUN (Urea Nitrogen) 24 mg/dL (8.4-25.7); Bilirubin, Total 0.9 mg/dL (0.2-1.2); Calc. Creatinine Clearance 0 mL/min (70-130); Calcium 10.3 mg/dL (7.8-10.44); Carbon Dioxide 17 mmol/L (23-31); Chloride 107 mmol/L (98-107); Estimated GFR 42; Globulin 3.4 g/dL (2.4-3.5); Glucose 204 mg/dL (80-115); Potassium 4.4 mmol/L (3.5-5.1); Protein, Total 7.4 g/dL (5.8-8.1); Sodium 138 mmol/L (136-145)
[2023-07-12 11:29] LABS: Troponin I 0.044 ng/mL (< 0.028)
[2023-07-12] MEDS ORDERED: Acetaminophen 500 MG TAB ONE (11:59)
[2023-07-12] MEDS ORDERED: Aspirin Chewable 81 MG TAB ONE (12:08)
[2023-07-12] MEDS ORDERED: Labetalol HCl 100 MG/20 ML VIAL ONE (12:48)
[2023-07-12 17:27] LABS: Anisocytosis MODERATE=16-30 cells (100X) (0-5/hpf); Microcytosis SLIGHT = 6-15 cells (100X) (0-5/hpf); Ovalocytes SLIGHT = 2-5 cells (100X) (0-1/hpf); Platelet Adequacy Comment Appears Adequate; Poikilocytosis SLIGHT = 6-15 cells (100X) (0-5/hpf); Spherocytes SLIGHT = 1-5 cells (100X) (None Seen)
== END 2023-07-12 13:53 | disposition short-term general hospital (02) ==
LOC: CSHERS 10:21
DX: R06.02 Shortness of breath (principal); R07.89 Other chest pain; R07.9 Chest pain, unspecified; R79.89 Other specified abnormal findings of blood chemistry; I11.0 Hypertensive heart disease with heart failure; I50.9 Heart failure, unspecified
CPT/HCPCS: 71045; 80053; 83880; 84484; 85025; 93005; 96374; 96376

== ENCOUNTER 2024-03-07 11:42 | Emergency (ER) | payer MEDICARE, OTHER ==
[2024-03-07] MEDS ORDERED: HYDROcodone/Acetaminophen 10/325 mg Tablet ONE (12:08)
== END 2024-03-07 12:43 | disposition home or self-care (01) ==
LOC: CSHERS 11:42
DX: M25.511 Pain in right shoulder (principal); I11.0 Hypertensive heart disease with heart failure; I50.9 Heart failure, unspecified; E11.9 Type 2 diabetes mellitus without complications; Z79.84 Long term (current) use of oral hypoglycemic drugs; Z79.899 Other long term (current) drug therapy
CPT/HCPCS: 99283